=== PATIENT | male | born 1945 | race Caucasian/White ===

== ENCOUNTER 2018-09-15 22:29 | Emergency (ER) | payer MEDICARE, BC ==
--- NOTE | 2018-09-15 22:54 | EDM.PDOC ---
ED HPI GENERAL MEDICAL PROBLEM - General Chief Complaint: Abdominal Pain Stated Complaint: ADM PAIN Time Seen by Provider: 09/15/18 22:50 Source of Information: Reports: Patient History Limitations: Reports: No Limitations - History of Present Illness INITIAL COMMENTS - FREE TEXT/NARRATIVE: low abd pain since Tues with on-off diarrhoea, did eat lunch today then abd pain worsen. has BM every 2 days or so. gives h/o bowel obstruction, Lower Abdominal Pain Score (Numeric/FACES): 6 - Related Data Allergies Allergy/AdvReac Type Severity Reaction Status Date / Time No Known Allergies Allergy Verified 09/15/18 22:37 Home Meds: Home Meds Allopurinol [Zyloprim] 300 mg PO DAILY 09/15/18 [History] Aspirin 81 mg PO DAILY 09/15/18 [History] ClonazePAM [KlonoPIN] 1 mg PO DAILY 09/15/18 [History] Levothyroxine [Synthroid] 50 mcg PO DAILY 09/15/18 [History] Metoprolol Succinate 25 mg PO DAILY 09/15/18 [History] Simvastatin 20 mg PO DAILY 09/15/18 [History] ED ROS GENERAL - Review of Systems Review Of Systems: ROS reveals no pertinent complaints other than HPI. ED EXAM, GI/ABD - Physical Exam Exam: See Below Exam Limited By: No Limitations General Appearance: Alert, WD/WN, Mild Distress, Other. No: Active Emesis ( general discomfort) Ears: Hearing Grossly Normal Throat/Mouth: Normal Voice, No Airway Compromise Head: Atraumatic Neck: Non-Tender, Full Range of Motion Respiratory/Chest: No Respiratory Distress Cardiovascular: Regular Rate, Rhythm GI/Abdominal Exam: Tender, Other (periumb>). No: Distended, Guarding, Rigid, Rebound Neurological: Alert, Oriented, Normal Cognition, Normal Gait, No Motor/Sensory Deficits Psychiatric: Flat Affect Skin Exam: Warm, Dry, Normal Color Course - Vital Signs Last Recorded V/S: Last Vital Signs Temp 37.4 C 09/15/18 22:44 Pulse 62 09/15/18 22:44 Resp 18 09/15/18 22:44 BP 78/36 L 09/15/18 22:44 Pulse Ox 96 09/15/18 22:44 - Orders/Labs/Meds Orders: Active Orders 24 hr Category Date Time Status CULTURE BLOOD [BC] Stat Lab 09/15/18 22:59 Received Piperacillin/Tazobactam [Zosyn] 3.375 gm Med 09/16/18 01:43 Active Sodium Chloride 0.9% [Normal Saline] 100 ml IV ONETIME Sodium Chloride 0.9% [Normal Saline] 1,000 ml Med 09/15/18 23:45 Active IV ASDIRECTED Medication Orders Sodium Chloride (Normal Saline) 1,000 mls @ 500 mls/hr IV ASDIRECTED GHULAM Last Admin: 09/15/18 23:48 Dose: 500 mls/hr Piperacillin Sod/Tazobactam (Sod 3.375 gm/ Sodium Chloride) 100 mls @ 200 mls/ hr IV ONETIME ONE Stop: 09/16/18 02:12 Last Admin: 09/16/18 01:51 Dose: 200 mls/hr Labs: Laboratory Tests 09/15/18 09/15/18 09/15/18 Range/Units 22:59 22:59 22:59 WBC 12.5 H (5.0-10.0) 10^3/uL RBC 3.78 L (4.6-6.2) 10^6/uL Hgb 11.8 L (14.0-18.0) g/dL Hct 37.7 L (40.0-54.0) % MCV 99.7 (80-100) fL MCH 31.2 (27.0-34.0) pg MCHC 31.3 L (33.0-35.0) g/dL Plt Count 248 (150-450) 10^3/uL Neut % (Auto) 76.5 H (42.2-75.2) % Lymph % (Auto) 6.4 L (20.5-50.1) % [place] % (Auto) 6.3 (2-8) % Eos % (Auto) 10.7 H (1.0-3.0) % Baso % (Auto) 0.1 (0.0-1.0) % Sodium 138 (135-145) mmol/L Potassium 4.1 (3.6-5.0) mmol/L Chloride 107 (101-111) mmol/L Carbon Dioxide 22.0 (21.0-31.0) mmol/L Anion Gap 13.1 BUN 31 H (7-18) mg/dL Creatinine 1.4 H (0.6-1.3) mg/dL Est Cr Clr Drug Dosing 37.12 mL/min Estimated GFR (MDRD) 50 BUN/Creatinine Ratio 22.14 Glucose 128 H (74-105) mg/dL Lactic Acid 1.9 (0.5-2.2) mmol/L Calcium 8.5 (8.4-10.2) mg/dl Total Bilirubin 0.6 (0.2-1.0) mg/dL AST 17 (10-42) IU/L ALT 11 (10-60) IU/L Alkaline Phosphatase 60 (42-121) IU/L Total Protein 5.5 L (6.7-8.2) g/dl Albumin 3.1 L (3.2-5.5) g/dl Globulin 2.4 Albumin/Globulin Ratio 1.29 Amylase 138 H (28-100) U/L Lipase 61 H (22-51) U/L Meds: Medications Generic Name Dose Route Start Last Admin Trade Name Freq PRN Reason Stop Dose Admin Sodium Chloride 1,000 mls @ 500 mls/hr 09/15/18 23:45 09/15/18 23:48 Normal Saline IV 500 mls/hr ASDIRECTED GHULAM Administration Piperacillin Sod/Tazobactam 100 mls @ 200 mls/hr 09/16/18 01:43 09/16/18 01: 51 Sod 3.375 gm/ Sodium Chloride IV 09/16/18 02:12 200 mls/hr ONETIME ONE Administration Discontinued Medications Generic Name Dose Route Start Last Admin Trade Name Freq PRN Reason Stop Dose Admin Clonazepam 0.5 mg 09/16/18 01:57 Klonopin PO 09/16/18 01:58 ONETIME ONE Lorazepam 1 mg 09/15/18 23:38 09/15/18 23:49 Ativan IVPUSH 09/15/18 23:39 1 mg ONETIME ONE Administration - Re-Assessments/Exams Free Text/Narrative Re-Assessment/Exam: 09/16/18 02:[address] Muse @ who kindly accepted pt. Departure - Departure Time of Disposition: 02:07 Disposition: DC/Tfer to Acute Hospital 02 Condition: Fair Clinical Impression: Gastroenteritis, Renal cyst Cholelithiasis Qualifiers: Cholelithiasis location: gallbladder Cholecystitis presence: with cholecystitis Cholecystitis acuity: acute Biliary obstruction: without biliary obstruction Qualified Code(s): K80.00 - Calculus of gallbladder with acute cholecystitis without obstruction Hypotension Qualifiers: Hypotension type: other hypotension type Qualified Code(s): I95.89 - Other hypotension - Discharge Information Forms: Interfacility Transfer [facility] - My Orders Last 24 Hours: My Active Orders 09/15/18 22:59 CULTURE BLOOD [BC] Stat 09/15/18 23:45 Sodium Chloride 0.9% [Normal Saline] 1,000 ml IV ASDIRECTED 09/16/18 01:43 Piperacillin/Tazobactam [Zosyn] 3.375 gm Sodium Chloride 0.9% [Normal Saline] 100 ml IV ONETIME - Assessment/Plan Last 24 Hours: My Active Orders 09/15/18 22:59 CULTURE BLOOD [BC] Stat 09/15/18 23:45 Sodium Chloride 0.9% [Normal Saline] 1,000 ml IV ASDIRECTED 09/16/18 01:43 Piperacillin/Tazobactam [Zosyn] 3.375 gm Sodium Chloride 0.9% [Normal Saline] 100 ml IV ONETIME
[2018-09-15 23:27] LABS: ANION GAP 13.1
[2018-09-15] MEDS ORDERED: LORazepam 2 MG/ML Syringe IVPUSH ONE (23:38)
[2018-09-15] MEDS ORDERED: Sodium Chloride 0.9% 1,000 ML IV SCH (23:45)
[2018-09-16] MEDS ORDERED: Piperacillin/Tazobactam 3.375 GM in Sodium Chloride 0.9% 100 ML IV ONE (01:43)
[2018-09-16] MEDS ORDERED: ClonazePAM 0.5 MG Tab PO ONE (01:57)
== END 2018-09-16 02:42 ==
LOC: DL.ED 22:29
DX: K52.9 Noninfective gastroenteritis and colitis, unspecified (principal); K80.00 Calculus of gallbladder with acute cholecystitis without obstruction; N28.1 Cyst of kidney, acquired; Z79.82 Long term (current) use of aspirin; Z79.899 Other long term (current) drug therapy
CPT/HCPCS: 36415; 74176; 80053; 82150; 83605; 83690; 85025; 87040; 96365; 96366; 96368; 96375; 99285; A9270; J2060; J2543; J7030; J7050; 99284